=== PATIENT | female | born 1955 | race Caucasian/White ===

== ENCOUNTER → 2018-09-03 | Outpatient (CLI) | payer BC ==
[2018-09-08 07:34] LABS: LEAD None Detected ug/dL (0-4); MERCURY WHOLE BLD None Detected ug/L (0.0-14.9)
== END ==
LOC: OD 12:01
PROVIDERS: ATTEND Orthopaedic Surgery
DX: Z96.641 Presence of right artificial hip joint (principal)
CPT/HCPCS: 36415; 82175; 83655; 83825

== ENCOUNTER → 2018-09-10 | Outpatient (CLI) | payer BC ==
[2018-09-10 12:35] LABS: ABSOLUTE EOSINOPHILS # (AUTO) 0.1 10^3/uL (0.0-0.6); ABSOLUTE LYMPHOCYTES (AUTO) 1.5 10^3/uL (0.5-4.7); ABSOLUTE MONOCYTES (AUTO) 0.4 10^3/uL (0.1-1.4); ABSOLUTE NEUT (AUTO) 3.7 10^3/uL (1.7-8.2); BASOPHILS % (AUTO) 0.6 % (0-2); HEMOGLOBIN 13.7 g/dL (12.0-15.5); LYMPHOCYTES % (AUTO) 26.6 % (13-45); MEAN CORPUSCULAR HEMOGLOBIN 31.8 pg (27.0-33.4); MEAN CORPUSCULAR HGB CONC 35.1 g/dL (32.0-36.0); MEAN CORPUSCULAR VOLUME 91 fl (80-97); MONOCYTES % (AUTO) 6.7 % (3-13); PLATELET COUNT 226 10^3/uL (150-450); RED BLOOD COUNT 4.31 10^6/uL (3.72-5.28); RED CELL DISTRIBUTION WIDTH 12.3 % (11.5-14.0); SEGMENTED NEUTROPHILS % (AUTO) 65.1 % (42-78); TOTAL CELLS COUNTED % (AUTO) 100 %; WHITE BLOOD COUNT 5.6 10^3/uL (4.0-10.5)
[2018-09-10 12:38] LABS: APPEARANCE,URINE CLEAR; BILIRUBIN,URINE NEGATIVE (NEGATIVE); COLOR,URINE YELLOW; GLUCOSE, URINE NEGATIVE (NEGATIVE); KETONES,URINE NEGATIVE (NEGATIVE); LEUKOCYTE ESTERASE,URINE NEGATIVE (NEGATIVE); NITRITE,URINE NEGATIVE (NEGATIVE); PROTEIN,URINE NEGATIVE (NEGATIVE); URINE SPECIFIC GRAVITY 1.014; UROBILINOGEN,URINE NEGATIVE mg/dL (<2.0)
[2018-09-10 12:55] LABS: ANION GAP 9 (5-19); BLOOD UREA NITROGEN 16 mg/dL (7-20); CALCIUM 9.5 mg/dL (8.4-10.2); CARBON DIOXIDE 28 mmol/L (22-30); CHLORIDE 105 mmol/L (98-107); GLUCOSE 103 mg/dL (75-110); POTASSIUM 4.1 mmol/L (3.6-5.0); SODIUM 141.5 mmol/L (137-145)
--- NOTE | 2018-09-10 13:00 | RADIOLOGY REPORT (SQ) ---
EXAM DESCRIPTION: CHEST PA/LATERAL COMPLETED DATE/TIME: 09/10/2018 12:14 pm REASON FOR STUDY: PRE-OP COMPARISON: None. EXAM PARAMETERS: NUMBER OF VIEWS: two views TECHNIQUE: Digital Frontal and Lateral radiographic views of the chest acquired. RADIATION DOSE: NA LIMITATIONS: none FINDINGS: LUNGS AND PLEURA: No opacities, masses or pneumothorax. No pleural effusion. MEDIASTINUM AND HILAR STRUCTURES: No masses or contour abnormalities. HEART AND VASCULAR STRUCTURES: Heart normal size. No evidence for failure. BONES: No acute findings. HARDWARE: None in the chest. OTHER: No other significant finding. IMPRESSION: NO SIGNIFICANT RADIOGRAPHIC FINDING IN THE CHEST. TECHNICAL DOCUMENTATION: JOB ID: [id number] [employer]- All Rights Reserved Reading location - IP/workstation name: [email or web address]
--- NOTE | 2018-09-10 22:05 | EKG REPORT ---
SEVERITY:- OTHERWISE NORMAL ECG - SINUS RHYTHM BORDERLINE LEFT AXIS DEVIATION : Confirmed by: Cuauhtemoc Thompson 10-Sep-2018 22:04:46
== END ==
LOC: OD 11:33
PROVIDERS: ATTEND Orthopaedic Surgery
DX: Z01.810 Encounter for preprocedural cardiovascular examination (principal); Z01.818 Encounter for other preprocedural examination; Z01.89 Encounter for other specified special examinations; R79.1 Abnormal coagulation profile
CPT/HCPCS: 36415; 71046; 80048; 81001; 85025; 85379; 93005; 93010

== ENCOUNTER 2018-09-28 05:20 | Inpatient (IN) | payer BC ==
[~2018-09-28 05:20] MED LIST: BUPIVACAINE INJ/PF LIPOSOME/PF 266 MG/20 ML SDV INJ PRN; CEFAZOLIN INJ 1 GM VIAL IV PRN; IBUPROFEN 800 MG in NORMAL SALINE 250 ML IV PRN; LACTATED RINGERS 1000 ML IV PRN; LIDOCAINE 0.5% INJ-PF (5 MG/ML) 50 ML SDV SUBCUT PRN; OXYCODONE HCL SR 10 MG TABLET PO PRN; PANTOPRAZOLE SODIUM 20 MG TABLET.DR PO PRN; VANCOMYCIN HCL 1,000 MG in DEXTROSE 5%-WATER 250 ML IV PRN
[2018-09-28] MEDS ORDERED: PANTOPRAZOLE SODIUM 20 MG TABLET.DR PO ONE (05:50)
[2018-09-28] MEDS ORDERED: OXYCODONE HCL SR 10 MG TABLET PO ONE (05:50)
[2018-09-28] MEDS ORDERED: CEFAZOLIN INJ 1 GM VIAL ONE (05:50)
[2018-09-28] MEDS ORDERED: EPHEDRINE SULFATE INJ 50 MG/1 ML AMPULE ONE (06:59)
[2018-09-28] MEDS ORDERED: ONDANSETRON HCL INJ/PF 4 MG/2 ML SDV ONE (06:59)
[2018-09-28] MEDS ORDERED: MIDAZOLAM 2 MG/2 ML INJ ONE (06:59)
[2018-09-28] MEDS ORDERED: FENTANYL CITRATE INJ/PF 100 MCG/2 ML AMPUL ONE (06:59)
[2018-09-28] MEDS ORDERED: TRANEXAMIC ACID INJ/PF 1,000 MG/10 ML SDV IV ONE ×2 (06:59→10:30)
[2018-09-28] MEDS ORDERED: PROPOFOL INJ 200 MG/20 ML VIAL IV ONE (07:00)
[2018-09-28] MEDS ORDERED: ACETAMINOPHEN 1,000 MG/100 ML RTUPB IV ONE (07:00)
[2018-09-28] MEDS ORDERED: THROMBIN (BOVINE) TOPICAL 20000 UNIT VIAL ONE (07:07)
[2018-09-28] MEDS ORDERED: THROMBIN (BOVINE) TOPICAL 5000 UNIT VIAL ONE (07:07)
[2018-09-28] MEDS ORDERED: BUPIVACAINE INJ/PF LIPOSOME/PF 266 MG/20 ML SDV ONE (07:08)
[2018-09-28] MEDS ORDERED: FENTANYL CITRATE INJ/PF 100 MCG/2 ML AMPUL IV PRN ×3 (08:10)
[2018-09-28] MEDS ORDERED: PROMETHAZINE HCL INJ 25 MG/1 ML VIAL IV PRN ×2 (08:10)
[2018-09-28] MEDS ORDERED: OXYCODONE-ACETAMINOPHEN 5-325 MG TABLET PO PRN ×2 (08:10)
[2018-09-28] MEDS ORDERED: DIPHENHYDRAMINE HCL 50 MG/ML VIAL IV PRN ×3 (08:10→09:30)
[2018-09-28] MEDS ORDERED: MORPHINE SULFATE 10 MG/ML INJ IV PRN ×7 (08:10→09:30)
[2018-09-28] MEDS ORDERED: MEPERIDINE HCL/PF INJ 25 MG/1 ML DISP.SYRIN IV PRN (08:10)
[2018-09-28] MEDS ORDERED: ONDANSETRON HCL INJ/PF 4 MG/2 ML SDV IV PRN (08:10)
[2018-09-28] MEDS ORDERED: MAG HYDROX/AL HYDROX/SIMETH SUSP 30 ML UDCUP PO PRN (08:44)
[2018-09-28] MEDS ORDERED: ONDANSETRON 4 MG TAB.RAPDIS PO PRN ×2 (08:44→09:30)
[2018-09-28] MEDS ORDERED: OXYCODONE HCL IR 5 MG TABLET PO PRN ×2 (08:44→09:30)
[2018-09-28] MEDS ORDERED: ZOLPIDEM TARTRATE 5 MG TABLET PO PRN (08:44)
[2018-09-28] MEDS ORDERED: ACETAMINOPHEN 325 MG TABLET PO PRN (08:44)
--- NOTE | 2018-09-28 08:44 | Operative Report ---
Operative Report DATE OF SURGERY: 09/28/18 PREOPERATIVE DIAGNOSIS: Right total hip associated pseudotumor OPERATION: Right revision hip arthroplasty SURGEON: BRYAN BAXTER ANESTHESIA: Spinal TISSUE REMOVED OR ALTERED: Cultures x2 to microbiology. Hypertrophic synovium to pathology. Implants to CSS ESTIMATED BLOOD LOSS: 100 PROCEDURE: Implants used: Acetabular shell: Vail 56 mm Trident 2 acetabular shell Liner:[36 mm flat cross-link polyethylene liner] Head: 36 mm Gruver Biolox ceramic head +12 extension The patient is placed in a left lateral decubitus position on the operating table. The right lower extremity and hindquarter is prepped and draped in a sterile fashion. A curvilinear incision was made over the greater trochanter a posterior approach the hip was taken in line with the previous surgical approach. On entering the hip capsule cultures x2 are sent. The fluid is a dark yellow brown fluid which is at least moderate in volume. The hip is dislocated and femoral head disimpacted using a bone impactor. The femoral stem is retracted anteriorly and the underlying hypertrophic synovium is removed and sent for pathology. Attention was next turned to the acetabulum. Soft tissues cleared off the acetabulum using electrocautery. The existing acetabulum was then removed using acetabular knives with minimal bone loss. The acetabulum was then prepared using a series of hemispherical reamers until a 55 millimeters reamer is seated. Subsequently a 56 millimeters Vail titanium hemispherical shell is impacted into position and secured with one screw. A standard flat 6 millimeters cross- link liner is impacted into the shell. Attention was next turned to the femur. A trial reduction was now performed using a 36 millimeters head with +12mm neck. Preoperative leg length was recreated and is excellent anterior posterior stability. A decision was made to proceed with the above construct. All trial implants were removed. The wound is gated the hip was dislocated one last time and the final ceramic head is impacted onto the trunnion. The hip was reduced. Wound is copiously irrigated with pulsed lavage. Sent closed in layers using interrupted Vicryl followed by mirna. A sterile dressing is applied and the patient's returned to recovery room in satisfactory patient.
[2018-09-28] MEDS ORDERED: OXYCODONE HCL SR 10 MG TABLET PO SCH ×2 (10:00)
[2018-09-28] MEDS ORDERED: PANTOPRAZOLE SODIUM 40 MG TABLET.DR PO SCH (10:00)
--- NOTE | 2018-09-28 10:10 | RADIOLOGY REPORT (SQ) ---
EXAM DESCRIPTION: PELVIS AP COMPLETED DATE/TIME: 09/28/2018 9:30 am REASON FOR STUDY: Post Op Long Cassette in PACU [id number] [facility] COMPL OF INTERNAL RIGHT HIP PROSTHES IS, INIT E COMPARISON: None. NUMBER OF VIEWS: One view TECHNIQUE: AP Pelvis LIMITATIONS: None. FINDINGS: MINERALIZATION: Normal. HIPS: There is a right hip arthroplasty that appears to be in good position. There is no dislocation . No fracture is present. PELVIS AND SACRUM: No acute fracture or dislocation. No worrisome bone lesions. PUBIS AND ISCHIUM: No acute fracture. LOWER LUMBAR SPINE: No significant findings as visualized. SOFT TISSUES: No findings. OTHER: No other significant finding. IMPRESSION: NEGATIVE STUDY OF THE PELVIS. COMMENT: Pelvic fractures are often occult on plain radiographs. If strong clinical suspicion for f racture, recommend CT or MR. TECHNICAL DOCUMENTATION: JOB ID: [id number] [employer]- All Rights Reserved Reading location - IP/workstation name: [email or web address]
[2018-09-28] MEDS: ASPIRIN 81 MG TABLET, ENT COATED PO SCH (11:07)
[2018-09-28] MEDS: PRENATAL VITAMIN W DHA CAPSULE PO SCH (11:07)
[2018-09-28] MEDS: SENNOSIDES/DOCUSATE 8.6-50 MG 1 EACH TABLET PO SCH ×2 (11:07→18:13)
[2018-09-28] MEDS: ONDANSETRON HCL INJ/PF 4 MG/2 ML SDV IV PRN (14:25)
[2018-09-28] MEDS: IBUPROFEN 800 MG in NORMAL SALINE 250 ML IV SCH ×2 (14:54→21:32)
[2018-09-28] MEDS: OXYCODONE HCL SR 10 MG TABLET PO SCH (18:14)
[2018-09-28] MEDS: PREGABALIN 75 MG CAPSULE PO SCH (18:16)
[2018-09-28] MEDS: RINGERS SOLUTION,LACTATED 1,000 ML IV PRN (18:19)
[2018-09-28] MEDS ORDERED: VANCOMYCIN HCL 1,000 MG in DEXTROSE 5%-WATER 250 ML IV ONE (21:00)
[2018-09-29] MEDS: RINGERS SOLUTION,LACTATED 1,000 ML IV PRN (04:00)
[2018-09-29] MEDS: OXYCODONE HCL SR 10 MG TABLET PO SCH (05:34)
[2018-09-29] MEDS: IBUPROFEN 800 MG in NORMAL SALINE 250 ML IV SCH ×2 (05:34→13:05)
[2018-09-29] MEDS: PREGABALIN 75 MG CAPSULE PO SCH (05:34)
[2018-09-29 05:51] LABS: HEMATOCRIT 28.8 % (36.0-47.0); HEMOGLOBIN 10.2 g/dL (12.0-15.5); MEAN CORPUSCULAR HEMOGLOBIN 32.3 pg (27.0-33.4); MEAN CORPUSCULAR HGB CONC 35.4 g/dL (32.0-36.0); MEAN CORPUSCULAR VOLUME 91 fl (80-97); PLATELET COUNT 164 10^3/uL (150-450); RED BLOOD COUNT 3.16 10^6/uL (3.72-5.28); RED CELL DISTRIBUTION WIDTH 12.3 % (11.5-14.0); WHITE BLOOD COUNT 6.3 10^3/uL (4.0-10.5)
[2018-09-29] MEDS ORDERED: PANTOPRAZOLE SODIUM 40 MG TABLET.DR PO SCH (06:00)
[2018-09-29 06:25] LABS: ANION GAP 8 (5-19); BLOOD UREA NITROGEN 10 mg/dL (7-20); CALCIUM 8.5 mg/dL (8.4-10.2); CARBON DIOXIDE 24 mmol/L (22-30); CHLORIDE 106 mmol/L (98-107); GLUCOSE 130 mg/dL (75-110); POTASSIUM 3.7 mmol/L (3.6-5.0); SODIUM 138.2 mmol/L (137-145)
--- NOTE | 2018-09-29 06:58 | PDOC DISCHARGE SUMMARY ---
General - Admit/Disc Date/PCP Admission Date/Primary Care Provider: 09/28/18 05:20 IRAIS DC PA-C Discharge Date: 09/29/18 - Discharge Diagnosis (1) Mechanical complication of hip prosthesis Is this a current diagnosis for this admission?: Yes - Additional Information Resuscitation Status: Full Code Home Medications: No Home Medications 09/14/18 History of Present Illness History of Present Illness: FRANCISCO BELLA is a 62 year old female Patient is a 52-year-old white female who is status post right hip arthroplasty for avascular necrosis in the past and received a [id number] articulation. Patient presents with increasing pain about the hip and a CT scan demonstrates a large pseudotumor. The patient is now admitted for elective revision arthroplasty that will involve conversion to a ceramic on plastic bearing surface. Hospital Course Hospital Course: Patient is admitted through the operating room where she undergoes uncomplicated right hip revision arthroplasty. She is returned to the floor in satisfactory condition. Pain control is reasonable. Patient has some episodes of nausea and vomiting which have been frequent for her postoperatively in other settings. She makes excellent progress with physical therapy and ablating 150 feet. Physical Exam Vital Signs: Temp Pulse Resp BP Pulse Ox 37.0 C 80 18 103/60 97 09/29/18 03:45 09/29/18 03:45 09/29/18 03:45 09/29/18 03:45 09/29/18 03:45 Intake & Output 09/27/18 09/28/18 09/29/18 06:59 06:59 06:59 Intake Total 0 7934 Output Total 5250 Balance 0 2684 Weight 60.78 kg Physical Exam: Middle-aged white female sitting up in bed applying makeup. She is alert, oriented, and appropriate. General appearance: PRESENT: no acute distress Head exam: PRESENT: normocephalic Respiratory exam: PRESENT: unlabored Cardiovascular exam: PRESENT: RRR Pulses: PRESENT: +1 pedal pulses bilateral Vascular exam: PRESENT: normal capillary refill GI/Abdominal exam: PRESENT: soft Rectal exam: PRESENT: deferred Extremities exam: PRESENT: other - Right hip dressing clean dry and intact. Leg lengths are equal. Distal neurovascular examination is intact. Neurological exam: PRESENT: alert, awake, oriented to person, oriented to place, oriented to time, oriented to situation. ABSENT: motor sensory deficit Psychiatric exam: PRESENT: appropriate affect, normal mood. ABSENT: homicidal ideation, suicidal ideation Results Laboratory Results: 09/29/18 05:22 09/29/18 05:22 09/28/18 09/29/18 09/29/18 05:57 05:22 05:22 WBC 6.3 RBC 3.16 L Hgb 10.2 L Hct 28.8 L MCV 91 MCH 32.3 MCHC 35.4 RDW 12.3 Plt Count 164 Sodium 138.2 Potassium 3.7 Chloride 106 Carbon Dioxide 24 Anion Gap 8 BUN 10 Creatinine 0.69 Est GFR ( Amer) > 60 Est GFR (Non-Af Amer) > 60 Glucose 130 H Calcium 8.5 Blood Type O POSITIVE Antibody Screen NEGATIVE Impressions: Pelvis X-Ray 09/28/18 08:45 IMPRESSION: NEGATIVE STUDY OF THE PELVIS. Status: Imported from [facility] - * PATIENT BEING DISCHARGED WITH ANY OF THE FOLLOWING DIAGNOSIS: No VTE patient discharged on overlapping Therapy?: Yes Plan Discharge Plan: Patient be discharged home with home health services and DME. Follow-up with Dr. Jolly and [facility] for surgery in 2 weeks for staple removal. Time Spent: Less than 30 Minutes
[2018-09-29] MEDS: ONDANSETRON HCL INJ/PF 4 MG/2 ML SDV IV PRN (09:28)
[2018-09-29] MEDS: PRENATAL VITAMIN W DHA CAPSULE PO SCH (09:28)
[2018-09-29] MEDS: ASPIRIN 81 MG TABLET, ENT COATED PO SCH (09:28)
[2018-09-29] MEDS: SENNOSIDES/DOCUSATE 8.6-50 MG 1 EACH TABLET PO SCH (09:29)
[2018-09-29 13:07] VITALS: BP 110/64
== END 2018-09-29 13:39 | disposition home or self-care (01) | DRG 468 ==
LOC: INOR 05:20 → 4S 09:48
PROVIDERS: ADMIT Orthopaedic Surgery; ATTEND Orthopaedic Surgery
PROC: 0SP90JZ Removal of Synthetic Substitute from Right Hip Joint, Open Approach (ICD-10-PCS; 2018-09-28)
PROC: 0SR904A Replacement of Right Hip Joint with Ceramic on Polyethylene Synthetic Substitute, Uncemented, Open Approach (ICD-10-PCS; principal; 2018-09-28 07:30)
DX: T84.090A Other mechanical complication of internal right hip prosthesis, initial encounter (principal); Y83.1 Surgical operation with implant of artificial internal device as the cause of abnormal reaction of the patient, or of later complication, without mention of misadventure at the time of the procedure
CPT/HCPCS: 01215; 36415; 72170; 80048; 85027; 86850; 86900; 86901; 87070; 87075; 87205; 88304; 94799; C1776; C9290; J0131; J0690; J1741; J2250; J2405; J2704; J3010; J3370; J3490; J7050; J7060; J7120

== ENCOUNTER → 2018-12-24 | Outpatient (CLI) | payer BC ==
[2018-12-24 12:36] LABS: ABSOLUTE EOSINOPHILS # (AUTO) 0.1 10^3/uL (0.0-0.6); ABSOLUTE LYMPHOCYTES (AUTO) 1.5 10^3/uL (0.5-4.7); ABSOLUTE MONOCYTES (AUTO) 0.3 10^3/uL (0.1-1.4); ABSOLUTE NEUT (AUTO) 2.6 10^3/uL (1.7-8.2); BASOPHILS % (AUTO) 0.9 % (0-2); EOSINOPHILS % (AUTO) 1.9 % (0-6); HEMATOCRIT 38.4 % (36.0-47.0); HEMOGLOBIN 13.3 g/dL (12.0-15.5); LYMPHOCYTES % (AUTO) 32.2 % (13-45); MEAN CORPUSCULAR HEMOGLOBIN 31.6 pg (27.0-33.4); MEAN CORPUSCULAR HGB CONC 34.7 g/dL (32.0-36.0); MEAN CORPUSCULAR VOLUME 91 fl (80-97); MONOCYTES % (AUTO) 6.7 % (3-13); PLATELET COUNT 219 10^3/uL (150-450); RED BLOOD COUNT 4.21 10^6/uL (3.72-5.28); RED CELL DISTRIBUTION WIDTH 11.8 % (11.5-14.0); SEGMENTED NEUTROPHILS % (AUTO) 58.3 % (42-78); TOTAL CELLS COUNTED % (AUTO) 100 %; WHITE BLOOD COUNT 4.5 10^3/uL (4.0-10.5)
[2018-12-24 13:04] LABS: ANION GAP 6 (5-19); BLOOD UREA NITROGEN 14 mg/dL (7-20); CALCIUM 9.4 mg/dL (8.4-10.2); CARBON DIOXIDE 31 mmol/L (22-30); CHLORIDE 104 mmol/L (98-107); GLUCOSE 85 mg/dL (75-110); POTASSIUM 4.1 mmol/L (3.6-5.0); SODIUM 140.8 mmol/L (137-145)
[2018-12-24 13:08] LABS: C-REACTIVE PROTEIN < 5.0 mg/L (<10.0)
[2018-12-24 13:13] LABS: ERYTHROCYTE SEDIMENTATION RATE 19 mm/hr (0-30)
== END ==
LOC: OD 11:47
PROVIDERS: ATTEND Orthopaedic Surgery
DX: M25.551 Pain in right hip (principal)
CPT/HCPCS: 36415; 80048; 85025; 85652; 86140

== ENCOUNTER → 2019-01-07 | Outpatient (CLI) | payer BC ==
--- NOTE | 2019-01-07 16:37 | RADIOLOGY REPORT (SQ) ---
EXAM DESCRIPTION: NM 3 PHASE BONE SCAN COMPLETED DATE/TIME: 01/07/2019 2:49 pm REASON FOR STUDY: Z96.60 PRESENCE OF UNSPECIFIED ORTHOPEDIC JOINT IMPLANT Z96.60 PRESENCE OF UNSPEC IFIED ORTHOPEDIC JOINT IMPLANT COMPARISON: Hip films 01/31/2009, 09/28/2018, outside films 12/24/2018 RADIONUCLIDE AND DOSE: 19.0 millicuries Tc99m MDP. The route of agent administration: Intravenous. ADDITIONAL DRUGS AND DOSES: None. TECHNIQUE: Following injection of the radiopharmaceutical, serial blood flow images acquired. Equil ibrium blood pool images then acquired. Routine delayed images at 3 hours acquired of the areas of c linical concern with additional focused images as needed. AREA OF INTEREST: Right hip LIMITATIONS: None. FINDINGS: VASCULAR FLOW IMAGES: No asymmetry or focal areas of hyperemia. BLOOD POOL IMAGES: No asymmetry or focal areas of soft-tissue hyper-perfusion. BONES: On the delayed images, there is a bandlike area of increased uptake along the right acetabulum adjacent to the acetabular component with total hip replacement. There is a bare area over the right femoral neck and proximal femoral metaphysis from the prosthesis. There is mild increased uptake along the distal tip of the right femoral component total hip arthro plasty. OTHER: No other significant finding. IMPRESSION: Increased uptake along the right lower sioux bone acetabulum Minimal increased uptake along the distal tip of the right femoral component total hip replacement. Increased uptake is worrisome for prosthesis loosening. COMMENT: Quality measure 147: Current bone scan is compared with any available plain radiographs, p rior bone scans, and CT/MRI. TECHNICAL DOCUMENTATION: JOB ID: [id number] [employer]- All Rights Reserved Reading location - IP/workstation name: [email or web address]
== END ==
LOC: RAD 11:33
PROVIDERS: ATTEND Orthopaedic Surgery
DX: Z96.60 Presence of unspecified orthopedic joint implant (principal)
CPT/HCPCS: 78315; A9561; Q9969